=== PATIENT | female | born 1965 | race Caucasian/White ===

== ENCOUNTER 2017-08-16 04:05 | Inpatient (IN) | payer OTHER ==
[2017-08-16] MEDS ORDERED: NA CHLORIDE 0.9% 1,000 ML ONE (04:42)
[2017-08-16] MEDS ORDERED: SUCRALFATE 1GM/10ML UCUP ONE (04:48)
[2017-08-16 05:25] LABS: Bicarbonate 25 mEq/L (21-31); Glucose Level 210 mg/dL (65-120); Lipase 22 U/L (22-51); Sodium Level 135 mEq/L (135-145)
[2017-08-16 05:26] LABS: Absolute Lymphocytes (CBC) 1.5 K/uL (0.7-4.9); Absolute Monocytes 0.6 K/uL (0.1-1.3); Absolute Neutrophil 14.8 K/uL (1.8-8.0); Basophils % 0.3 % (0-1.3); Eosinophils % 0.1 % (0-4.4); Hematocrit 45.9 % (36.0-45.0); MCH 29.8 pg (27.0-35.0); MCV 89.3 fL (80-100); MPV 8.5 fL (7.6-11.3); Monocytes % 3.4 % (3.3-12.3); RBC Red Blood Cell Count 5.14 M/uL (3.86-4.86)
[2017-08-16 05:31] LABS: ALT/SGPT 28 IU/L (10-60); AST/SGOT 22 IU/L (10-42); Albumin 4.6 g/dL (3.2-5.5); Alkaline Phosphatase 71 IU/L (42-121); BUN Blood Urea Nitrogen 11 mg/dL (6-20); Bilirubin Direct 0.1 mg/dL (0-0.2); Bilirubin Total 0.6 mg/dL (0.3-1.2); Protein, Total 8.4 g/dL (6.0-8.3)
[2017-08-16 05:47] LABS: Urine Bacteria <20 /HPF (<20); Urine Culture Reflex Order NOT NEEDED; Urine RBC <5 /HPF (NONE SEEN)
[2017-08-16 05:51] LABS: Urine Blood TRACE (NEG); Urine Glucose 2+ (NEG); Urine Protein NEGATIVE (NEG)
[2017-08-16] MEDS ORDERED: MORPHINE 4 MG/ML SYR ONE ×2 (06:18→11:09)
--- NOTE | 2017-08-16 06:42 | EKG ---
Test Date: 2017-08-16 Test Time: 05:01:19 Reception Specialist: MEASUREMENT RESULTS: Intervals: Rate: 77 IA: 174 QRSD: 76 QT: 372 QTc: 420 [place]: P: 38 IA: 174 QRS: 0 T: 12 INTERPRETIVE STATEMENTS: Normal sinus rhythm Normal ECG No previous ECG available for comparison Electronically Signed On 08-16-17 06:41:41 CDT by Jimmy Pearce
[2017-08-16 06:45] LABS: Blood Morphology Comment NOT SEEN (NOT SEEN); Platelet Estimate ADEQ
--- NOTE | 2017-08-16 08:28 | RAD REPORT ---
EXAM DESCRIPTION: CT - Stone Protocol - 08/16/2017 6:43 am CLINICAL HISTORY: Abdominal pain. Epigastric pain for 1 week COMPARISON: None. TECHNIQUE: Computed axial tomography of the abdomen pelvis was obtained without oral or IV contrast. Lack of IV and oral contrast limits evaluation of solid organs, bowel, and vessels. Coronal reformat joel images were obtained and reviewed. A preliminary report was generated by [employer] and r eviewed prior to this dictation All CT scans are performed using dose optimization technique as appropriate and may include automated exposure control or mA/KV adjustment according to patient size. FINDINGS: A 3 centimeter gallstone is present. The gallbladder wall appears borderline thickened. Left renal calculi vary in size from 1-4 millimeters. Left hydronephrosis is not seen. A right renal calculus is not present. Right hydronephrosis is not noted. A ureteral calculus is not seen. A bladde r calculus is not present. An IUD is present within the uterus. A 26 millimeter right ovarian cyst is present without significant free-fluid. The liver, spleen, pancreas and adrenals appear grossly normal There is no evidence of diverticulitis. The appendix appears normal A small umbilical hernia contains fat IMPRESSION: Nonobstructing left renal calculi Cholelithiasis. Borderline gallbladder wall thickening may indicate cholecystitis and should be corre lated clinically
--- NOTE | 2017-08-16 08:30 | RAD REPORT ---
EXAM DESCRIPTION: US - Abdomen Exam Limited - 08/16/2017 6:54 am CLINICAL HISTORY: Abdominal pain. COMPARISON: August 16, 2017 cat scan FINDINGS: A large gallstone is present within the gallbladder neck. Small amount of sludge is presen t in the gallbladder. Gallbladder wall appears borderline thickened. Common bile duct measures 6.4 millimeters. IMPRESSION: Cholelithiasis. Borderline gallbladder wall thickening may indicate cholecystitis and sh ould be correlated clinically. The common bile duct is borderline enlarged
--- NOTE | 2017-08-16 08:48 | ER ---
Nurse's Notes [facility] Name: Lillie Zabala Age: 51 yrs Sex: Female : 1965 Arrival Date: 08/16/2017 Time: 04:07 Bed 8 Private MD: Bouchra Jenkins Diagnosis: Acute abdominal pain;Acute Cholecystitis;hyperglycemia;glucosuria Presentation: 08/16 04:23 Presenting complaint: Patient states: Mid abdominal pain that has been on and off x 1 lp1 week, worse this morning when she woke up with N/V; Hx of GERD, acid reflux. Transition of care: patient was not received from another setting of care. Onset of symptoms was August 16, 2017. Initial Sepsis Screen: Does the patient meet any 2 criteria? No. Patient's initial sepsis screen is negative. Does the patient have a suspected source of infection? No. Patient's initial sepsis screen is negative. Care prior to arrival: None. 04:23 Method Of Arrival: Ambulatory lp1 04:23 Acuity: GABE 3 lp1 SOFTWARE SALES: 04:23 LMP N/A - IUD ea Historical: - Allergies: 04:30 No Known Allergies; lp1 - Home Meds: 04:30 lisinopril 10 mg Oral tab 1 tab once daily [Active]; pantoprazole 40 mg oral TbEC 1 tab lp1 once daily [Active]; amlodipine 5 mg tab 1 tab once daily [Active]; - PMHx: 04:30 GERD; acid reflux; Hypertension; hiatal hernia; lp1 - PSHx: 04:30 ; lp1 - Immunization history:: Adult Immunizations up to date. - Social history:: Smoking status: Patient/guardian denies using tobacco. Screenin:38 Abuse screen: Denies threats or abuse. Denies injuries from another. Nutritional lp1 screening: No deficits noted. Tuberculosis screening: No symptoms or risk factors identified. Fall Risk None identified. Assessment: 05:09 General: Appears in no apparent distress. comfortable, Behavior is calm, cooperative. mg2 Pain: Complains of pain in abdomen Pain does not radiate. Pain at worst was 7 out of 10 on a pain scale. Quality of pain is described as aching, Pain began gradually, Is intermittent, Alleviated by medications, rest, relaxation. Neuro: Level of Consciousness is awake, alert, obeys commands, Oriented to person, place, time. Cardiovascular: Capillary refill < 3 seconds Patient's skin is warm and dry. Rhythm is regular. Respiratory: Airway is patent Respiratory effort is even, unlabored. GI: Abdomen is non-distended, Reports lower abdominal pain, diarrhea, nausea. : Urine is clear. EENT: No signs and/or symptoms were reported regarding the EENT system. Derm: Skin is pink, warm \T\ dry. normal. Musculoskeletal: No signs and/or symptoms reported regarding the musculoskeletal system. 06:15 Reassessment: Patient appears in no apparent distress at this time. Patient and/or mg2 family updated on plan of care and expected duration. Pain level reassessed. Patient is alert, oriented x 3, equal unlabored respirations, skin warm/dry/pink. 07:00 Reassessment: pt resting quietly laying supin in bed, HOB elevated 35 degrees, pt sg reports pain is better, a 2/10 on a pain scale. awaiting new orders at this time, awaiting results from CT scan, will continue to monitor. 08:00 Reassessment: Patient appears in no apparent distress at this time. Patient and/or sg family updated on plan of care and expected duration. Pain level reassessed. Patient is alert, oriented x 3, equal unlabored respirations, skin warm/dry/pink. Patient states feeling better. 09:00 Reassessment: Patient appears in no apparent distress at this time. Patient and/or sg family updated on plan of care and expected duration. Pain level reassessed. Patient is alert, oriented x 3, equal unlabored respirations, skin warm/dry/pink. new orders received, see EMAR Patient states feeling better. 10:00 Reassessment: Patient appears in no apparent distress at this time. Patient and/or sg family updated on plan of care and expected duration. Pain level reassessed. Patient is alert, oriented x 3, equal unlabored respirations, skin warm/dry/pink. awaiting a bed assignment at this time, Dr. Manriquez at bedside evaluating pt at this time, orders have been input for a bed upstairs, pt updated on admission status, will continue to monitor. Vital Signs: 04:15 BP 168 / 90; Pulse 88; Resp 18 S; Temp 98.1; Pulse Ox 98% on R/A; Weight 99.79 kg; ea Height 5 ft. 6 in. (167.64 cm); Pain 7/10; 06:15 BP 147 / 68; Pulse 79; Resp 18; Pulse Ox 98% on R/A; Pain 6/10; mg2 07:51 BP 122 / 61; Pulse 83; Resp 18; Pulse Ox 94% ; sv 08:00 Pain 7/10; sg 11:24 BP 142 / 67; Pulse 88; Resp 18 S; Pulse Ox 97% on R/A; Pain 7/10; sg 04:15 Body Mass Index 35.51 (99.79 kg, 167.64 cm) ea ED Course: 04:07 Patient arrived in ED. am2 04:09 Bouchra Jenkins FNP-C is Private Physician. am2 04:17 Darian Brown MD is Attending Physician. gs 04:23 Leah Matthew, RN is Primary Nurse. lp1 04:25 Triage completed. lp1 04:25 Arm band placed on left wrist. lp1 04:30 Patient has correct armband on for positive identification. Placed in gown. Pulse ox lp1 on. NIBP on. 04:41 Radiology exam delayed due to test not completed at this time. vr 05:14 No provider procedures requiring assistance completed. Inserted saline lock: 20 gauge mg2 in right antecubital area, using aseptic technique. 05:53 CT Stone Protocol In Process Unspecified. EDMS 06:52 Ultrasound completed. Patient tolerated well. aa4 06:53 US Abdomen Limited In Process Unspecified. EDMS 08:03 Primary Nurse role handed off by Leah Matthew, RN sg 08:03 Que Herbert, MYLENE is Primary Nurse. sg 08:40 Attending Physician role handed off by Darian Brown MD wa 08:40 Terrence Lomax MD is Attending Physician. wa 08:46 Sathish Manriquez MD is Hospitalizing Provider. wa 09:20 Surgeon called OR and left message that Dr. Walters had a surgical consult in the ED. eb 11:44 Patient admitted, IV remains in place. intact. sv Administered Medications: 05:07 Drug: NS 0.9% 1000 ml Route: IV; Rate: 1 bolus; Site: right antecubital; mg2 06:27 Follow up: Response: No adverse reaction mg2 07:00 Follow up: Response: No adverse reaction; IV Status: Completed infusion; IV Intake: sg 990ml 05:07 Drug: Zofran 4 mg Route: IVP; Site: right antecubital; mg2 06:26 Follow up: Response: No adverse reaction; Nausea is decreased mg2 05:08 Drug: CarafATE 1 grams Route: PO; mg2 06:00 Follow up: Response: No adverse reaction; Pain is decreased mg2 06:25 CANCELLED (Physician Discretion): fentaNYL (PF) 50 mcg IVP once mg2 06:25 Drug: morphine 4 mg Route: IVP; Site: right antecubital; mg2 07:25 Follow up: Response: No adverse reaction; Pain is decreased sg 09:00 Drug: LevaQUIN 500 mg Volume: 100 ml; Route: IVPB; Infused Over: 60 mins; Site: right sg antecubital; 10:05 Follow up: Response: No adverse reaction; IV Status: Completed infusion; IV Intake: sg 100ml 09:25 Drug: Flagyl 500 mg Volume: 100 ml; Route: IVPB; Rate: 200 ml/hr; Infused Over: 30 sg mins; Site: right antecubital; 10:05 Follow up: Response: No adverse reaction; IV Status: Completed infusion; IV Intake: sg 100ml 11:15 Drug: morphine 4 mg Route: IVP; Site: right antecubital; sg Intake: 07:00 IV: 990ml; Total: 990ml. sg 10:05 IV: 100ml; Total: 1090ml. sg 10:05 IV: 100ml; Total: 1190ml. sg Outcome: 08:47 Decision to Hospitalize by Provider. wa 11:45 Admitted to Med/surg accompanied by tech, via wheelchair, room 230, with chart, Report sv called to Angel CHAKRABORTY 11:45 Condition: stable 11:45 Instructed on the need for admit. 11:51 Patient left the ED. sg Signatures: Dispatcher [employer] EDMS Rosalina Falcon RN RN sv Gay, Steven, RN RN Rachel Nielsen Victoria vr Pena, Laura, RN RN lp1 Rachel Valdez am2 Santana, Abigail, RN RN ea Brown, Darian, MD MD gs Dami, Terrence, MD MD wa Siddiqi, Tori eb Gardose, Tay, RN RN mg2 Corrections: (The following items were deleted from the chart) 04:23 04:15 BP 168 / 90; Pulse 88bpm; Pulse Ox 98% RA; ea ea 06:29 06:15 BP 147 / 68; Pulse 79bpm; Resp 18bpm; Pulse Ox 98% RA; mg2 mg2
--- NOTE | 2017-08-16 08:48 | EDPHYS ---
Physician Documentation [facility] Name: Lillie Zabala Age: 51 yrs Sex: Female : 1965 Arrival Date: 08/16/2017 Time: 04:07 Bed 8 Private MD: Bouchra Jenkins ED Physician Terrence Lomax HPI: 08/16 06:16 This 51 yrs old Female presents to ER via Ambulatory with complaints of gs Abdominal Pain, Nausea/Vomiting. 06:22 The patient presents with abdominal pain in the epigastric area, in the upper abdomen. gs Onset: The symptoms/episode began/occurred 3 day(s) ago. The symptoms radiate to Associated signs and symptoms: Pertinent positives: nausea and vomiting. The symptoms are described as sharp. Modifying factors: The symptoms are alleviated by nothing, the symptoms are aggravated by food. Severity of pain: At its worst the pain was severe in the emergency department the pain has improved moderately. The patient has experienced similar episodes in the past, several times. The patient has not recently seen a physician. RADIO ELECTRICIAN: 04:23 LMP N/A - IUD ea Historical: - Allergies: 04:30 No Known Allergies; lp1 - Home Meds: 04:30 lisinopril 10 mg Oral tab 1 tab once daily [Active]; pantoprazole 40 mg oral TbEC 1 tab lp1 once daily [Active]; amlodipine 5 mg tab 1 tab once daily [Active]; - PMHx: 04:30 GERD; acid reflux; Hypertension; hiatal hernia; lp1 - PSHx: 04:30 ; lp1 - Immunization history:: Adult Immunizations up to date. - Social history:: Smoking status: Patient/guardian denies using tobacco. ROS: 06:22 All other systems are negative. gs 08:48 Constitutional: Negative for fever, chills, and weight loss, Eyes: Negative for injury, wa pain, redness, and discharge. Exam: 06:22 Head/Face: Normocephalic, atraumatic. Eyes: Pupils equal round and reactive to light, gs extra-ocular motions intact. Lids and lashes normal. Conjunctiva and sclera are non-icteric and not injected. Cornea within normal limits. Periorbital areas with no swelling, redness, or edema. ENT: Nares patent. No nasal discharge, no septal abnormalities noted. Tympanic membranes are normal and external auditory canals are clear. Oropharynx with no redness, swelling, or masses, exudates, or evidence of obstruction, uvula midline. Mucous membranes moist. Neck: Trachea midline, no thyromegaly or masses palpated, and no cervical lymphadenopathy. Supple, full range of motion without nuchal rigidity, or vertebral point tenderness. No Meningismus. Chest/axilla: Normal chest wall appearance and motion. Nontender with no deformity. No lesions are appreciated. Cardiovascular: Regular rate and rhythm with a normal S1 and S2. No gallops, murmurs, or rubs. Normal PMI, no JVD. No pulse deficits. Respiratory: Lungs have equal breath sounds bilaterally, clear to auscultation and percussion. No rales, rhonchi or wheezes noted. No increased work of breathing, no retractions or nasal flaring. Back: No spinal tenderness. No costovertebral tenderness. Full range of motion. Skin: Warm, dry with normal turgor. Normal color with no rashes, no lesions, and no evidence of cellulitis. MS/ Extremity: Pulses equal, no cyanosis. Neurovascular intact. Full, normal range of motion. Neuro: Awake and alert, GCS 15, oriented to person, place, time, and situation. Cranial nerves II-XII grossly intact. Motor strength 5/5 in all extremities. Sensory grossly intact. Cerebellar exam normal. Normal gait. 06:22 Constitutional: The patient appears alert, awake. 06:22 ECG was reviewed by the Attending Physician. 06:22 Abdomen/GI: Palpation: moderate abdominal tenderness, in the epigastric area and right upper quadrant. Vital Signs: 04:15 BP 168 / 90; Pulse 88; Resp 18 S; Temp 98.1; Pulse Ox 98% on R/A; Weight 99.79 kg; ea Height 5 ft. 6 in. (167.64 cm); Pain 7/10; 06:15 BP 147 / 68; Pulse 79; Resp 18; Pulse Ox 98% on R/A; Pain 6/10; mg2 07:51 BP 122 / 61; Pulse 83; Resp 18; Pulse Ox 94% ; sv 08:00 Pain 7/10; sg 11:24 BP 142 / 67; Pulse 88; Resp 18 S; Pulse Ox 97% on R/A; Pain 7/10; sg 04:15 Body Mass Index 35.51 (99.79 kg, 167.64 cm) ea MDM: 04:24 Patient medically screened. gs 06:22 Differential diagnosis: cholecystitis, Cholelithiasis, diverticulitis, gastroesophageal gs reflux disease, Peptic Ulcer Disease. Data reviewed: vital signs, nurses notes. Response to treatment: the patient's symptoms have markedly improved after treatment. 08:41 Physician consultation: Sathish Manriquez MD. Special discussion: received sign out from ks out-going MD Dr. Brown. pt with abd pain with assoc vomiting. post-prandial. noted with elevated WBC and gallstones with thickened wall. will admit for further treatment and surgical eval. incidental finding of hyperglycemia and glucosuria. now dx. pt has family history. I did advise admit MD Dr. Manriquez of this.. 08/16 04:39 Order name: Basic Metabolic Panel; Complete Time: 05:51 gs 08/16 04:39 Order name: CBC with Diff; Complete Time: 07:10 08/16 04:39 Order name: Hepatic Function; Complete Time: 05:51 gs 08/16 04:39 Order name: Lipase; Complete Time: 05:51 gs 08/16 04:39 Order name: Urine Microscopic Only; Complete Time: 05:51 gs 08/16 05:13 Order name: Urine Dipstick--Ancillary (enter results); Complete Time: 05:54 rg2 08/16 05:13 Order name: Urine --Ancillary (enter results); Complete Time: 05:54 rg2 08/16 06:27 Order name: Manual Differential; Complete Time: 07:09 EDMS 08/16 09:04 Order name: Hemoglobin A1C EDMS 08/16 09:04 Order name: CBC with Automated Diff EDMS 08/16 09:04 Order name: CBC with Automated Diff EDMS 08/16 09:04 Order name: CBC with Automated Diff EDMS 08/16 09:04 Order name: CBC with Automated Diff EDMS 08/16 09:04 Order name: Comprehensive Metabolic Panel EDMS 08/16 04:39 Order name: EKG; Complete Time: 04:39 gs 08/16 04:39 Order name: CT Stone Protocol; Complete Time: 08:34 gs 08/16 05:55 Order name: US Abdomen Limited; Complete Time: 08:33 gs 08/16 09:04 Order name: CONS Physician Consult EDIA 08/16 09:04 Order name: NPO EDIA 08/16 09:04 Order name: Comprehensive Metabolic Panel EDIA 08/16 09:04 Order name: Comprehensive Metabolic Panel EDIA 08/16 09:04 Order name: Comprehensive Metabolic Panel [facility] 08/16 04:39 Order name: IV Saline Lock; Complete Time: 05:08 08/16 04:39 Order name: Labs collected and sent; Complete Time: 05:08 gs 08/16 04:39 Order name: Urine Dipstick-Ancillary (obtain specimen); Complete Time: 04:55 gs 08/16 04:39 Order name: EKG - Nurse/Tech; Complete Time: 05:07 gs 08/16 04:39 Order name: Urine Test (obtain specimen); Complete Time: 04:55 gs EC:22 Rate is 77 beats/min. Rhythm is regular. LA interval is normal. QRS interval is normal. gs T waves are Flattened in leads V2, V3. No ST changes noted. Clinical impression: NSR w/ Non-specific ST/T Changes and Abnormal EKG without significant change. Interpreted by me. Administered Medications: 05:07 Drug: NS 0.9% 1000 ml Route: IV; Rate: 1 bolus; Site: right antecubital; mg2 06:27 Follow up: Response: No adverse reaction mg2 07:00 Follow up: Response: No adverse reaction; IV Status: Completed infusion; IV Intake: sg 990ml 05:07 Drug: Zofran 4 mg Route: IVP; Site: right antecubital; mg2 06:26 Follow up: Response: No adverse reaction; Nausea is decreased mg2 05:08 Drug: CarafATE 1 grams Route: PO; mg2 06:00 Follow up: Response: No adverse reaction; Pain is decreased mg2 06:25 CANCELLED (Physician Discretion): fentaNYL (PF) 50 mcg IVP once mg2 06:25 Drug: morphine 4 mg Route: IVP; Site: right antecubital; mg2 07:25 Follow up: Response: No adverse reaction; Pain is decreased sg 09:00 Drug: LevaQUIN 500 mg Volume: 100 ml; Route: IVPB; Infused Over: 60 mins; Site: right sg antecubital; 10:05 Follow up: Response: No adverse reaction; IV Status: Completed infusion; IV Intake: sg 100ml 09:25 Drug: Flagyl 500 mg Volume: 100 ml; Route: IVPB; Rate: 200 ml/hr; Infused Over: 30 sg mins; Site: right antecubital; 10:05 Follow up: Response: No adverse reaction; IV Status: Completed infusion; IV Intake: sg 100ml 11:15 Drug: morphine 4 mg Route: IVP; Site: right antecubital; sg Disposition: 08/16/17 08:47 Hospitalization ordered by Sathish Manriquez for Inpatient Admission. Preliminary diagnosis are Acute abdominal pain, Acute Cholecystitis, hyperglycemia, glucosuria. - Bed requested for Telemetry/MedSurg (observation). - Status is Inpatient Admission. sg - Condition is Stable. - Problem is new. - Symptoms have improved. UTI on Admission? No Signatures: Dispatcher [employer] EDMS Que Herbert RN RN sg Leah Matthew RN RN lp1 Yuliya Chauhan RN RN Darian Brown MD MD Terrence Lomax MD MD wa Botello, Elizabeth eb Gardose, Michele, RN RN mg2 Corrections: (The following items were deleted from the chart) 06:25 05:55 fentaNYL (PF) 50 mcg IVP once ordered. mg2 08:52 08:47 Hospitalization Ordered by Sathish Manriquez MD for Inpatient Admission. Preliminary eb diagnosis is Acute abdominal pain; Acute Cholecystitis; hyperglycemia; glucosuria. Bed requested for Telemetry/MedSurg (observation). Status is Inpatient Admission. Condition is Stable. Problem is new. Symptoms have improved. UTI on Admission? No. ks 09:33 08:52 08/16/2017 08:47 Hospitalization Ordered by Sathish Manriquez MD for Inpatient eb Admission. Preliminary diagnosis is Acute abdominal pain; Acute Cholecystitis; hyperglycemia; glucosuria. Bed requested for Telemetry/MedSurg (observation). Status is Inpatient Admission. Condition is Stable. Problem is new. Symptoms have improved. UTI on Admission? No. eb 11:29 09:33 08/16/2017 08:47 Hospitalization Ordered by Sathish Manriquez MD for Inpatient df Admission. Preliminary diagnosis is Acute abdominal pain; Acute Cholecystitis; hyperglycemia; glucosuria. Bed requested for Telemetry/MedSurg (observation). Status is Inpatient Admission. Condition is Stable. Problem is new. Symptoms have improved. UTI on Admission? No. eb 11:51 11:29 08/16/2017 08:47 Hospitalization Ordered by Sathish Manriquez MD for Inpatient sg Admission. Preliminary diagnosis is Acute abdominal pain; Acute Cholecystitis; hyperglycemia; glucosuria. Bed requested for Telemetry/MedSurg (observation). Status is Inpatient Admission. Condition is Stable. Problem is new. Symptoms have improved. UTI on Admission? No. df
[2017-08-16] MEDS ORDERED: METRONIDAZOLE 500mg IVPB 500 MG/100 ML BAG IV ONE (08:50)
[2017-08-16] MEDS ORDERED: Levofloxacin500mg IV 500 MG/100 ML BAG IV ONE (08:51)
[2017-08-16] MEDS ORDERED: ACETAMINOPHEN 650MG/RECT SUPP PR PRN (09:00)
[2017-08-16] MEDS ORDERED: ONDANSETRON 4 MG/2 ML VIAL IV PRN (09:00)
[2017-08-16] MEDS: INSULIN -REGULAR HUMAN 50 UNIT/0.5 ML ML SQ SCH ×3 (11:30→21:00)
--- NOTE | 2017-08-16 12:41 | RAD REPORT ---
EXAM DESCRIPTION: MRIAbdomen (Gallbladder) CLINICAL HISTORY: Abdominal pain COMPARISON: CT/ultrasound 08/16/2017 FINDINGS: A large gallstone is noted in the gallbladder. The gallbladder wall is slightly thickened, however, no significant pericholecystic fluid is suspected. No intrahepatic biliary dilatation seen. The common bile duct is normal caliber. No common bile duct stone is seen. Pancreatic duct is normal . Limited T2 sequences through the abdomen show no aggressive or worrisome solid organ abnormality. No bulky adenopathy or free fluid in the abdomen. IMPRESSION: Cholelithiasis. No convincing evidence of acute cholecystitis seen. No common duct stone or significant biliary dilatation suspected.
[2017-08-16] MEDS ORDERED: SODIUM CHLORIDE 0.9% 10ML INJ IV PRN (13:03)
[2017-08-16] MEDS: D5 0.45 NS 1,000 ML IV SCH ×3 (13:13→20:18)
[2017-08-16] MEDS ORDERED: PROMETHAZINE 25 MG/ML VIAL IV ONE (14:56)
[2017-08-16] MEDS ORDERED: PNEUMOCOCCAL VACCINE 0.5 ML IMVAC ONE (15:00)
--- NOTE | 2017-08-16 18:05 | CON ---
Date of Consultation: 08/16/2017 Diagnoses: Epigastric right upper quadrant pain, acute cholecystitis, and symptomatic cholelithiasis . History Of Present Illness: This is the case of a 51-year-old patient, comes to us with epigastric r ight upper quadrant pain radiating to the back, associated with nausea and vomiting for about a week of duration. She has been trying to see if she can hold this and today she just could not keep it an ymore and she gets nauseous and she decided to come to the ER and diagnosed as above. She denies any dysuria, hematuria, hematochezia, or melena. Denies any recent traveling out of the country. Denie s any family member sick at home. Past Medical History: Includes hypertension, hiatal hernia, acid reflux, and GERD. Medications: Lisinopril. Allergies: NONE. Social History: She does not smoke. She does not drink alcohol. Family History: Unremarkable. Review of Systems: Constitutional: Denies any fever. Respiratory: Denies any shortness of breath. Gastrointestinal: As above.. Genitourinary: Denies any dysuria, hematuria. Physical Examination: General: The patient is awake and alert. HEENT: Pupils are equal and reactive, anicteric. Neck: Supple. Chest: Clear. Heart: S1, S2. Abdomen: Epigastric right upper quadrant tenderness with Law sign positive. Breasts: Deferred. Rectal: Deferred. Pelvic: Deferred. Extremities: Good capillary refill. Laboratory Data: Blood work shows a WBC count of 17 with hemoglobin of 15 and platelets of 345 with potassium 4.0, total bilirubin of 0.6, and lipase 22. UA, urine negative. The patient had an MRI of the abdomen and it shows cholelithiasis. The abdominal ultrasound shows cholelithiasis, b orderline gallbladder wall thickening, cholecystitis. Abdominal ultrasound, as above. CAT scan of t he abdomen and pelvis shows gallstones, kidney stone on the left side with no hydronephrosis. Umbili meghna hernia. Assessment: Acute cholecystitis , symptomatic cholelithiasis with umbilical hernia. The patient is still having this issue for a week, not improving, so we offered her laparoscopic, possible open chol ecystectomy with benefits, alternatives, and risks including, but not limited to infection, bleeding, damage to adjacent structures, anesthesia complication, choledocholithiasis, bile leak, pancreatitis , AR, and even . She also understands this may not relieve any symptoms. She might need more t john one surgical intervention. She understood and she will sign a consent. JESUS Voice ID: [id number] Report ID: [id number]
[2017-08-16] MEDS: METRONIDAZOLE 500mg IVPB 500 MG/100 ML BAG IV SCH (18:42)
[2017-08-16] MEDS: CIPROFLOXACIN 400mg IV 400 MG/200 ML BAG IV SCH (20:17)
--- NOTE | 2017-08-17 00:01 | HP ---
Date of Admission: 08/16/2017 Primary Care Physician: Dr. Marla Esquivel. Consultants: Dr. aWlters with General Surgery. History Of Present Illness: The patient is a 51-year-old female with past medical history of hyperte nsion, hiatal hernia, gastroesophageal reflux disease, who was in her usual state of health until sev eral weeks prior to admission when the patient has been having right upper quadrant and epigastric pa in associated with nausea and vomiting, worse with fried, fatty foods. The patient has had episodes of vomiting recently, which has been progressively worsening. Her pain has become worse, constant, d ull in nature, radiating to her back in between the shoulder blades. The patient comes in for [facility] r evaluation. In the ER, her workup revealed elevated white count of 17,000 and imaging study showed acute cholecystitis. The patient was then referred for admission. When seen in the ER, the patient was awake, alert, oriented x3, in some acute distress. Past Medical History: Hypertension, hiatal hernia, gastroesophageal reflux disease. Past Surgical History: x3. Allergies: NO KNOWN DRUG ALLERGIES. Medications: Reviewed. Social History: The patient is , has 3 children. Does not smoke. Does drink occasionally in social events. No illicit drug use. Family History: Brother and mother both have diabetes. Mother also has coronary artery disease. Review of Systems: An 11-point system reviewed, negative except as above. Physical Examination: Vital Signs: Temperature 98.1, heart rate 88, blood pressure 168/90, respirations 18, O2 98% on room air. General: Awake, alert, oriented x3, in some mild distress. Obese female. BMI of 35.5. HEENT: Normocephalic, atraumatic. PERRLA. EOMI. Dry mucous membranes. Oropharynx is clear. Norm al dentition. Conjunctiva is anicteric. Neck: Supple. No JVD. Trachea midline. CV: S1, S2. Regular rate and rhythm. Peripheral pulses present bilaterally. Respiratory: Moving air well bilaterally. No wheezing. Gastrointestinal: Abdomen is soft. Tenderness to palpation in the epigastric and right upper quadra nt region. No rebound or guarding. No palpable masses. Extremities: No clubbing, cyanosis, or edema. No calf tenderness. Neuro: Cranial nerves 2-12 intact grossly, 5/5 strength bilateral lower extremities. Sensation inta ct to light touch. Speech is normal. Skin: No rashes. Normal skin turgor. Psych: Mood is okay. Affect is full. Insight and judgment are good. Laboratory Data: Sodium 135, potassium 4, chloride 103, CO2 25, BUN 11, creatinine 0.67, glucose 210 , calcium 9.7, total bilirubin 0.6, AST 22, ALT 28, alkaline phosphatase 71, albumin 4.6, lipase 22. WBC 17, H and H 15.3 and 45.9, platelets 345, neutrophils 87%. Urine test is negative. U A shows negative nitrite, negative leukocyte, does have 2+ glucose, negative protein, no bacteria. Imaging Studies: CT scan of the abdomen shows IUD within the uterus 3 cm with gallstone, gallbladder wall borderline thickened, nonobstructing left renal calculi, 26 mm right ovarian cyst present witho ut significant free fluid. Borderline gallbladder wall thickening may indicate cholecystitis. MRCP shows cholelithiasis. No convincing evidence of acute cholecystitis seen. No common duct stone or s ignificant biliary dilatation suspected. Abdominal ultrasound shows cholelithiasis, borderline gallb ladder wall thickening may indicate cholecystitis. Common bile duct is borderline enlarged at 6.4 cm . EKG shows rate of 77, normal sinus rhythm, no acute T-wave or ST changes. Assessment: A 51-year-old female with: 1.Right upper quadrant abdominal pain secondary to acute cholecystitis. 2.Acute cholecystitis without choledocholithiasis. MRCP is negative for any ductal stone. Abdomina l ultrasound had shown some enlarged CBD at 6.4 cm. 3.Hyperglycemia. We will check hemoglobin A1c. The patient has strong family history of diabetes, has metabolic syndrome. 4.Obesity, BMI of 35. 5.Essential hypertension. We will add as needed medications. 6.Gastroesophageal reflux disease. Continue IV PPI. 7.Gastrointestinal and deep venous thrombosis prophylaxis, PPI and SCDs. Plan: Keep n.p.o., IV fluids, IV pain medications. Obtain surgical consultation. ROSEMARIE Voice ID: [id number]
[2017-08-17] MEDS: METRONIDAZOLE 500mg IVPB 500 MG/100 ML BAG IV SCH ×2 (00:41→08:45)
[2017-08-17 05:43] LABS: Absolute Lymphocytes (CBC) 2.8 K/uL (0.7-4.9); Absolute Monocytes 0.8 K/uL (0.1-1.3); Basophils % 0.4 % (0-1.3); Eosinophils % 0.9 % (0-4.4); Hematocrit 41.6 % (36.0-45.0); Lymphocytes % 28.8 % (15.3-44.8); MCH 29.7 pg (27.0-35.0); MCV 90.7 fL (80-100); MPV 8.2 fL (7.6-11.3); Monocytes % 8.2 % (3.3-12.3); RBC Red Blood Cell Count 4.59 M/uL (3.86-4.86)
[2017-08-17] MEDS: INSULIN -REGULAR HUMAN 50 UNIT/0.5 ML ML SQ SCH ×4 (06:00→16:33)
[2017-08-17 06:19] LABS: ALT/SGPT 20 IU/L (10-60); AST/SGOT 19 IU/L (10-42); Albumin 3.5 g/dL (3.2-5.5); Alkaline Phosphatase 60 IU/L (42-121); BUN Blood Urea Nitrogen 6 mg/dL (6-20); Bicarbonate 25 mEq/L (21-31); Bilirubin Total 0.6 mg/dL (0.3-1.2); Glucose Level 138 mg/dL (65-120); Magnesium 1.9 mg/dL (1.8-2.5); Potassium 3.8 mEq/L (3.6-5.0); Protein, Total 6.3 g/dL (6.0-8.3); Sodium Level 137 mEq/L (135-145)
[2017-08-17] MEDS ORDERED: KCL 20 MEQ/100 mL IVPB 20 MEQ/100 ML BAG IV SCH (07:00)
[2017-08-17] MEDS ORDERED: PANTOPRAZOLE 40 MG INJ IVP SCH (09:00)
[2017-08-17 09:58] LABS: A1c Component 0.57 mg/dL; Hemoglobin A1c 5.9 % (4-6.0)
[2017-08-17] MEDS ORDERED: PROPOFOL 200 MG/20 ML VIAL IV ONE (10:00)
[2017-08-17] MEDS ORDERED: GLYCOPYRROLATE 0.2 MG/ML SYR ONE ×2 (10:01)
[2017-08-17] MEDS ORDERED: FENTANYL CITR 100 MCG/2 ML ONE (10:01)
[2017-08-17] MEDS ORDERED: ONDANSETRON 4 MG/2 ML VIAL ONE (10:01)
[2017-08-17] MEDS ORDERED: MIDAZOLAM HCL 2 MG/2 ML INJ ONE (10:01)
[2017-08-17] MEDS ORDERED: LIDOCAINE 1% MPF 5 ML VIAL ONE (10:02)
[2017-08-17] MEDS ORDERED: KETOROLAC 30 MG/ML INJ ONE (10:02)
[2017-08-17] MEDS ORDERED: ROCURONIUM 50 MG/5 ML VIAL IV ONE (10:02)
[2017-08-17] MEDS ORDERED: MORPHINE 10 MG/ML VIAL ONE (10:02)
[2017-08-17] MEDS ORDERED: NEOSTIGMINE 1 MG/ML -5 ML SYRINGE ONE (10:03)
[2017-08-17] MEDS ORDERED: NA CHLORIDE 0.9% 1,000 ML ONE (11:20)
[2017-08-17] MEDS ORDERED: MEPERIDINE HCL 25 MG/0.5 ML ONE (12:36)
--- NOTE | 2017-08-17 12:39 | P.BOP ---
Preoperative diagnosis: Acute cholecystitis, symptomatic cholelithiasis Postoperative diagnosis: same Primary procedure: Laparoscopic cholecystectomy Estimated blood loss: <10cc Specimen: gb Findings: as above Anesthesia: General Complications: None Transferred to: Recovery Room Condition: Good
[2017-08-17] MEDS: CIPROFLOXACIN 400mg IV 400 MG/200 ML BAG IV SCH (16:45)
--- NOTE | 2017-08-18 00:30 | DS ---
Date of Discharge: 08/17/2017 Consultants: Dr. Walters, General Surgery. Procedures: On 08/17/2017, laparoscopic cholecystectomy and umbilical hernia repair. Admitting Diagnoses: 1.Right upper quadrant abdominal pain. 2.Cholelithiasis without acute cholecystitis or choledocholithiasis. 3.Obesity, BMI 35.5. 4.Gastroesophageal reflux disease without esophagitis. 5.Essential hypertension. 6.Hyperglycemia. Discharge Diagnoses: 1.Right upper quadrant abdominal pain secondary to cholelithiasis, status post cholecystectomy. 2.Prediabetes. Hemoglobin A1c 5.9%. Diet and exercise modification. Recheck hemoglobin A1c in 3 m [facility]. 3.Obesity, BMI 35. 4.Essential hypertension, stable. 5.Gastroesophageal reflux disease without esophagitis. Continue PPI. Hospital Course: The patient is a 51-year-old female who comes in with abdominal pain. She was foun d to have acute cholelithiasis and acute cholecystitis. The patient had white count of 17,000. She was started on IV antibiotics, kept n.p.o. She was seen by Dr. Walters who took her for laparoscopi c cholecystectomy and umbilical hernia repair. She did have an MRCP which ruled out choledocholithia sis. Her ultrasound initially had shown borderline enlargement of the common bile duct, however, no stone was found. The patient was counseled on her obesity and hyperglycemia. She is prediabetic wit h hemoglobin A1c of 5.9%. She needs to have diet modification and exercise modification. Recheck he r hemoglobin A1c in 3 months and if continues to be elevated, she needs to be started on metformin by her PCP, Bouchra Esquivel. The patient was also counseled on diet modifications following gallbladder rem oval including fat-soluble vitamin supplementation. The patient did well postoperatively. Her white count normalized. She was afebrile. She was tolerating her diet. Pain was controlled. The patien t was then cleared for discharge from surgical standpoint, sent home in stable condition. Activity: As tolerated. Medications: As per medication reconciliation list. Time Spent: Total time spent discharging the patient was 36 minutes. No lifting more than 10 pounds . No driving or operating heavy machinery while on narcotics. Diet: Low fat, no fried food supplemented with vitamins D, E, A, and K. Discharge Instructions: Per Dr. Walters. Followup: Follow up with primary care physician in 2-3 days. Follow up with Dr. Walters in 1 week for wound check. Medications: As per medication reconciliation list. Physical Examination: General: Awake, alert, oriented, no acute distress. CV: S1, S2. No murmurs. Respiratory: Moving air well bilaterally. Abdomen: Soft, nontender, nondistended. Positive bowel sounds. Incision sites are clean, dry, inta ct. Extremities: No clubbing, cyanosis, edema. Neurologic: Nonfocal. SA/MODL Voice ID: [id number] Report ID: [id number]
--- NOTE | 2017-08-18 18:10 | OP ---
Date of Procedure: 08/17/2017 Surgeon: Willem Walters MD Preoperative Diagnoses: Acute cholecystitis, symptomatic cholelithiasis. Postoperative Diagnoses: Acute cholecystitis, symptomatic cholelithiasis. Procedure Performed: Laparoscopic cholecystectomy. Specimen: Gallbladder. Anesthesia: General plus local. Indications: This is a case of a female, who comes to us with above diagnosis. Fully explained the benefits, alternatives, and risks of laparoscopic, possible open cholecystectomy which include, but n ot limited to infection, bleeding, damage to adjacent structures, anesthesia complication, choledocho lithiasis, bile leak, pancreatitis, PA, even . She also understands this may not relieve any sy mptoms. She might need more than one surgical intervention. She understood. Signed a consent. Description Of Procedure: The patient was brought to the operating room and placed in the supine pos ition. Anesthesia was done without complication. Abdominal area was prepped and draped in a sterile fashion. Marcaine 0.5% was injected for local anesthetic, followed by sharp incision of the skin in the infraumbilical region. Incision was carried down to fascia, which was opened under direct visio n. Peritoneum was encountered, opened under direct vision. Vicryl #1 placed inside the fascia. Has son trocar was carefully introduced. No bleeding was obtained. After that, I placed 3 more trocars, 5 mm each one of them, in the right upper quadrant under direct visualization. We put a grasper in the fundus of the gallbladder, another grasper in the infundibulum, retracted the gallbladder in the inferolateral fashion exposing the triangle of Calot and obtaining critical view of safety. The cyst ic duct and cystic artery were clearly isolated free circumferentially and a connection between those and the gallbladder was clearly identified. I proceeded to ligate those by using at least 3 clips p roximal, 1 clip distally, ligation in the middle. Same was done with the cystic artery. No bile parveen k. No bleeding. The gallbladder was removed from liver using Bovie cauterizer and removed from abdo mell cavity using an EndoCatch through the umbilical incision. The area was inspected once again. Clips were intact. No bile leak. No bleeding. Gallbladder fossa was intact. At that moment, I pro ceeded to remove the trocars under direct vision. Deflated pneumoperitoneum. Closed the fascia with #1 Vicryl, irrigated subcu tissue, closed that with 3-0 chromic, and skin with shane. Sponge coun t and instrument counts were correct. The patient tolerated the procedure well. The patient was sen t to Recovery in stable condition. The patient has plan to go home today. If she tolerates full din ner then she will be able to go home today. She was advised to keep the area dry for 48 hours, then may shower. Continue with antibiotics as described. No heavy lifting. Followup: Follow up in my office in 1 week. JESUS Voice ID: [id number] Report ID: [id number]
== END 2017-08-17 19:35 | disposition home or self-care (01) | DRG 419 ==
LOC: ER 04:05 → ERHOLD 09:07 → 2ND 11:49
PROVIDERS: ADMIT Family Medicine; ATTEND Family Medicine
PROC: 0FT44ZZ Resection of Gallbladder, Percutaneous Endoscopic Approach (ICD-10-PCS; principal; 2017-08-17 11:00)
DX: K80.00 Calculus of gallbladder with acute cholecystitis without obstruction (principal); E66.9 Obesity, unspecified; Z68.35 Body mass index [BMI] 35.0-35.9, adult; K21.9 Gastro-esophageal reflux disease without esophagitis; R73.03 Prediabetes; I10 Essential (primary) hypertension; K42.9 Umbilical hernia without obstruction or gangrene
CPT/HCPCS: 36415; 74176; 74181; 76377; 76705; 80048; 80053; 80076; 81003; 81015; 81025; 82962; 83036; 83690; 83735; 85025; 88304; 93005; 94760; 96361; 96365; 96375; 99285; C9113; J0744; J2175; J2250; J2405; J2550; J2710; J3010; J7030

== ENCOUNTER 2020-08-07 15:09 | Inpatient (IN) | payer OTHER ==
--- OUTSIDE RECORDS SUMMARY | 2020-08-07 15:11 | XMS REPORT | Continuity of Care Document ---
:1965 Author Organization [facility] t Address [address] [place] [address] Care Team Providers Name Role Phone Adelso King DO Attending Clinician Problems This patient has no known problems. Allergies, Adverse Reactions, Alerts This patient has no known allergies or adverse reactions. Medications Ordered Filled Start Stop Current Ordering Indication Dosage Frequency Signature Comments Components Source Medication Medication Date Date Medication? Clinician (SIG) Name Name MetFORMIN MetFORMIN Yes Bouchra [address] [facility] HCl ER HCl ER [place] with [facility] Lisinopril Lisinopril Yes Bouchra [address] [facility] [place] [facility] Etodolac Etodolac Yes Bouchra [address] [place] with food [facility] Omeprazole Omeprazole Yes Bouchra [address] [facility] [place] 30 minutes [facility] before [facility] morning l meal [facility] Tums E-X Tums E-X Yes Bouchra not [facility] [place] defined [facility] Norvasc Norvas Yes Bouchra take [address] [facility] [place] tablet [facility] daily [facility] Singulair Singulair Yes Bouchra [address] [facility] [place] [facility] Crestor Crestor Yes Bouchra [address] [facility] [place] [facility] Pantoprazol Pantoprazol Yes Bouchra take [address] [facility] e Sodium e Sodium [place] tablet [facility] Outpati empty ent stomach Clinics once a day orally 90 Procedures This patient has no known procedures. Encounters Start End Encounter Admission Attending Care Care Encounter Source Date/Time Date/Time Type Type Clinicians Facility Department ID 2020-07-28 2020-07-28 Outpatient [facility] [id number] [facility] 2020-06-27 2020-06-27 Out[facility] [id number] [facility] 2020-06-15 2020-06-15 Out[facility] [id number] [facility] 2020-02-23 2020-02-23 Outpatient [facility] [id number] [facility] 2020-02-11 2020-02-11 Outpatient [facility] [id number] [facility] 2020-02-10 2020-02-10 [facility] [id number] [facility] 2020-01-29 2020-01-29 Out[facility] [id number] [facility] 2019-08-10 2019-08-10 [facility] [id number] [facility] 08:[facility] 08[facility]00 [place] 2019-07-01 2019-07-01 [facility] [id number] [facility] 13:33:00 13:33:00 [place] 2019-01-05 2019-01-05 [facility] [id number] [facility] 15:41:00 15:41:[place] [address] - [address] [facility] Medicine Outpati ent Clinics 2018-12-24 2018-12-24 [facility] [id number] 08[facility]00[facility]00 08:00:00 t [facility] Medicine Outpati ent Clinics 2018-10-22 2018-11-18 Office jorje [facility] [id number] 10:49:12 16:26:58 Visit [facility] [id number] [facility] [id number] [place] [id number] [facility] Office Building 2018-10-13 2018-10-13 Outpatient Alexandra Morrist [id number] [facility] 12:27:00 12:27:00 t [facility] Medicine Outpati ent Clinics 2018-06-24 2018-06-24 [facility] [id number] 11:00:00 11:00:00 [facility] Medicine Outpati ent Clinics 2017-12-26 2017-12-26 [facility] [id number] 10:30:00 10:30:00 t [facility] Medicine Outpati ent Clinics Results This patient has no known results.
[2020-08-07 23:14] LABS: Absolute Lymphocytes (CBC) 3.1 K/uL (0.7-4.9); Basophils % 0.9 % (0-1.3); Hematocrit 44.9 % (36.0-45.0); Lymphocytes % 33.1 % (15.3-44.8); MPV 8.8 fL (7.6-11.3); RBC Red Blood Cell Count 5.06 M/uL (3.86-4.86)
[2020-08-07 23:15] LABS: Protime INR 1.03
[2020-08-07] MEDS ORDERED: LIDOCAINE VISCOUS 2% SOLN 15 ML UDC ONE (23:38)
[2020-08-07] MEDS ORDERED: MAGNES/ALUMIN/SIMET 30ML UCUP ONE (23:38)
[2020-08-07 23:42] LABS: ALT/SGPT 59 U/L (12-78); AST/SGOT 143 U/L (15-37); Albumin 3.9 g/dL (3.4-5.0); Alkaline Phosphatase 92 U/L (45-117); BUN Blood Urea Nitrogen 10 mg/dL (7-18); Bicarbonate 23 mmol/L (21-32); Bilirubin Direct < 0.1 mg/dL (0-0.2); Bilirubin Total 0.3 mg/dL (0.2-1.0); Glucose Level 128 mg/dL (74-106); Lipase 121 U/L (73-393); Magnesium 2.2 mg/dL (1.8-2.4); NT PRO-BNP 456 pg/mL (<125); Potassium 4.2 mmol/L (3.5-5.1); Protein, Total 8.1 g/dL (6.4-8.2); Sodium Level 138 mmol/L (136-145)
[2020-08-07] MEDS ORDERED: FAMOTIDINE 20 MG/2 ML VIAL IV ONE (23:42)
[2020-08-08] MEDS ORDERED: ASPIRIN 81 MG CHEWABLE TABLET ONE (00:06)
--- NOTE | 2020-08-08 00:18 | ER ---
Nurse's Notes [facility] Name: Lillie Zabala Age: 54 yrs Sex: Female : 1965 Arrival Date: 08/07/2020 Time: 15:10 Bed 24 Private MD: Diagnosis: Non-ST elevation (NSTEMI) myocardial infarction Presentation: 08/07 15:38 Chief complaint: Patient states: Severe pain through mid chest that radiates into back ll1 since 07/14/20. Had EGD and colonscopy 07/28. Showed gastritis and removed a polyp. BP has been elevated at time since the end of June, has log of readings. Coronavirus screen: Client denies travel out of the [place] in the last 14 days. cough unrelated to allergies, fatigue, loss of taste or smell, Client presents with at least one sign or symptom that may indicate coronavirus-19. Standard/surgical mask placed on the client. Ebola Screen: Patient denies travel to an Ebola-affected area in the 21 days before illness onset. Initial Sepsis Screen: Does the patient meet any 2 criteria? HR > 90 bpm. No. Patient's initial sepsis screen is negative. Does the patient have a suspected source of infection? No. Patient's initial sepsis screen is negative. Risk Assessment: Do you want to hurt yourself or someone else? Patient reports no desire to harm self or others. Onset of symptoms was July 14, 2020. 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 - Social history:: Smoking status: Patient denies any tobacco usage or history of. Screenin:04 Abuse screen: Denies threats or abuse. Denies injuries from another. Nutritional mg2 screening: No deficits noted. Tuberculosis screening: No symptoms or risk factors identified. Fall Risk IV access (20 points). Assessment: 23:03 General: Appears in no apparent distress. comfortable, Behavior is calm, cooperative. mg2 Pain: Complains of pain in chest Pain radiates to back. Neuro: Level of Consciousness is awake, alert, obeys commands, Oriented to person, place, time, situation. Cardiovascular: Capillary refill < 3 seconds Patient's skin is warm and dry. Respiratory: Airway is patent Respiratory effort is even, unlabored, Respiratory pattern is regular, symmetrical. GI: No signs and/or symptoms were reported involving the gastrointestinal system. : No signs and/or symptoms were reported regarding the genitourinary system. EENT: No signs and/or symptoms were reported regarding the EENT system. Derm: Skin is intact, is healthy with good turgor, Skin is pink, warm \T\ dry. normal. Musculoskeletal: Circulation, motion, and sensation intact. Capillary refill < 3 seconds. 23:45 Reassessment: Patient appears in no apparent distress at this time. Patient and/or mg2 family updated on plan of care and expected duration. Pain level reassessed. Patient is alert, oriented x 3, equal unlabored respirations, skin warm/dry/pink. 08/08 02:02 Reassessment: Hospitalist at bedside explaining POC need for admit. Vital Signs: 08/07 15:38 BP 181 / 94; Pulse 102; Resp 18; Temp 97.4; Pulse Ox 98% on R/A; Weight 90.72 kg; ll1 Height 5 ft. 6 in. (167.64 cm); Pain 6/10; 22:45 BP 181 / 98; Pulse 90; Resp 18; Pulse Ox 98% on R/A; mg2 23:45 BP 138 / 64; Pulse 75; Resp 18; Pulse Ox 98% on R/A; mg2 08/08 02:00 BP 142 / 65; Pulse 71; Resp 18; Pulse Ox 98% on R/A; wh 08/07 15:38 Body Mass Index 32.28 (90.72 kg, 167.64 cm) ll1 ED Course: 08/07 15:10 Patient arrived in ED. mr 15:35 Arm band placed on. ll1 15:43 Triage completed. ll1 22:36 Tay Singh RN is Primary Nurse. mg2 22:55 Arsen Wilkerson MD is Attending Physician. 7 23:04 Patient has correct armband on for positive identification. athletic monitor on. Pulse mg2 ox on. NIBP on. Door closed. Warm blanket given. 23:04 No provider procedures requiring assistance completed. Inserted saline lock: 20 gauge mg2 in left antecubital area, using aseptic technique. Blood collected. 08/08 00:17 Pantera Sharma DO is Hospitalizing Provider. [facility] 01:13 Patient admitted, IV remains in place. mg2 Administered Medications: 08/07 23:22 Drug: GI Cocktail without - (Maalox Suspension 30 ml, Lidocaine Liquid 2 % 15 mg2 ml) Route: PO; 08/08 02:04 Follow up: Response: No adverse reaction 08/07 23:23 Drug: Pepcid (famotidine) 20 mg Route: IVP; Site: left antecubital; mg2 08/08 02:04 Follow up: Response: No adverse reaction 00:01 Drug: Aspirin Chewable Tablet 324 mg Route: PO; mg2 02:04 Follow up: Response: No adverse reaction 00:19 Drug: Lovenox (enoxaparin) 1 mg/kg Route: Sub-Q; Site: right lower abdomen; 02:04 Follow up: Response: No adverse reaction Outcome: 00:18 Decision to Hospitalize by Provider. [facility] 01:13 Admitted to ER Hold. Please see [facility] for further documentation. mg2 01:13 Condition: stable 01:13 Instructed on the need for admit, Demonstrated understanding of instructions. 13:44 Patient left the ED. aa5 Signatures: Raven Alarcon mr ElizondoBrittany RN RN aa5 Eze Correa RN RN Tay Singh RN RN [facility] Elvin Black RN RN 1 Arsen Wilkerson MD MD [facility] Corrections: (The following items were deleted from the chart) 08/07 15:44 15:38 Acuity: GABE 3 ll1 ll1
--- NOTE | 2020-08-08 00:19 | EDPHYS ---
Physician Documentation [facility] Name: Lillie Zabala Age: 54 yrs Sex: Female : 1965 Arrival Date: 08/07/2020 Time: 15:10 Bed 24 Private MD: ED Physician Arsen Wilkerson HPI: 08/07 23:19 This 54 yrs old Female presents to ER via Ambulatory with complaints of High mh7 Blood Pressure. 23:20 The patient or guardian reports chest pain that is located primarily in the epigastric mh7 area. Onset: 2 month(s) ago. 23:21 The pain radiates to back. Associated signs and symptoms: Pertinent negatives: cough, mh7 diaphoresis, dizziness, headache, lower extremity pain, lower extremity swelling, lightheadedness, nausea, near syncope, palpitations, recent travel, shortness of breath, syncope, vomiting. The chest pain is described as burning. Duration: The patient or guardian reports multiple episodes, that are intermittent, that wax and wane. Modifying factors: The symptoms are alleviated by antacids, the symptoms are aggravated by eating. Severity of pain: At its worst the pain was moderate 10 day(s) ago, in the emergency department the pain has improved moderately. States that she saw GI doctor for this issue and had EGD and colonoscopy and was told she had acid reflux. She is concerned that her blood pressure goes up when she has an episode. Denies any nausea, vomiting, fever, SOB.. 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 - Social history:: Smoking status: Patient denies any tobacco usage or history of. ROS: 23:21 Constitutional: Negative for fever, chills, and weight loss, Eyes: Negative for injury, mh7 pain, redness, and discharge, ENT: Negative for injury, pain, and discharge, Neck: Negative for injury, pain, and swelling, Respiratory: Negative for shortness of breath, cough, wheezing, and pleuritic chest pain, : Negative for injury, bleeding, discharge, and swelling, MS/Extremity: Negative for injury and deformity, Skin: Negative for injury, rash, and discoloration, Neuro: Negative for headache, weakness, numbness, tingling, and seizure, Psych: Negative for depression, anxiety, suicide ideation, homicidal ideation, and hallucinations, Allergy/Immunology: Negative for hives, rash, and allergies, Endocrine: Negative for neck swelling, polydipsia, polyuria, polyphagia, and marked weight changes, Hematologic/Lymphatic: Negative for swollen nodes, abnormal bleeding, and unusual bruising. Exam: 23:21 Constitutional: This is a well developed, well nourished patient who is awake, alert, mh7 and in no acute distress. Head/Face: Normocephalic, atraumatic. Eyes: Pupils equal round and reactive to light, extra-ocular motions intact. Lids and lashes normal. Conjunctiva and sclera are non-icteric and not injected. Cornea within normal limits. Periorbital areas with no swelling, redness, or edema. Neck: Trachea midline, no thyromegaly or masses palpated, and no cervical lymphadenopathy. Supple, full range of motion without nuchal rigidity, or vertebral point tenderness. No Meningismus. Chest/axilla: Normal chest wall appearance and motion. Nontender with no deformity. No lesions are appreciated. Cardiovascular: Regular rate and rhythm with a normal S1 and S2. No gallops, murmurs, or rubs. Normal PMI, no JVD. No pulse deficits. Respiratory: Lungs have equal breath sounds bilaterally, clear to auscultation and percussion. No rales, rhonchi or wheezes noted. No increased work of breathing, no retractions or nasal flaring. Abdomen/GI: Soft, non-tender, with normal bowel sounds. No distension or tympany. No guarding or rebound. No evidence of tenderness throughout. Back: No spinal tenderness. No costovertebral tenderness. Full range of motion. Skin: Warm, dry with normal turgor. Normal color with no rashes, no lesions, and no evidence of cellulitis. MS/ Extremity: Pulses equal, no cyanosis. Neurovascular intact. Full, normal range of motion. Neuro: Awake and alert, GCS 15, oriented to person, place, time, and situation. Cranial nerves II-XII grossly intact. Motor strength 5/5 in all extremities. Sensory grossly intact. Cerebellar exam normal. Normal gait. Psych: Awake, alert, with orientation to person, place and time. Behavior, mood, and affect are within normal limits. Vital Signs: 15:38 BP 181 / 94; Pulse 102; Resp 18; Temp 97.4; Pulse Ox 98% on R/A; Weight 90.72 kg; ll1 Height 5 ft. 6 in. (167.64 cm); Pain 6/10; 22:45 BP 181 / 98; Pulse 90; Resp 18; Pulse Ox 98% on R/A; mg2 23:45 BP 138 / 64; Pulse 75; Resp 18; Pulse Ox 98% on R/A; mg2 08/08 02:00 BP 142 / 65; Pulse 71; Resp 18; Pulse Ox 98% on R/A; wh 08/07 15:38 Body Mass Index 32.28 (90.72 kg, 167.64 cm) ll1 MDM: 00:15 Differential diagnosis: abnormal EKG, acute myocardial infarction, acute pericarditis, mh7 anxiety, coronary artery disease chest wall pain, congestive heart failure costochondritis, esophagitis, gastritis, gastroesophageal reflux disease (GERD), myocarditis, pericarditis, pneumonia. HEART Score: History: Moderately Suspicious (1), ECG: Non specific repolarization disturbance / LBTB / PM (1), Age: > 45 and < 65 years (1), Risk Factors: > or = 3 Risk factors for atherosclerotic disease (2), [Hypercholesterolemia] [Hypertension] [DM] Troponin: > or = 3 x Normal Limit (2), Total Score = 7. The patient was given aspirin in the Emergency Department. Data reviewed: vital signs, nurses notes, lab test result(s), cardiac enzymes, CBC, electrolytes, EKG, radiologic studies, plain films. Data interpreted: Pulse oximetry: on room air is 98 %. Interpretation: normal. Counseling: I had a detailed discussion with the patient and/or guardian regarding: the historical points, exam findings, and any diagnostic results supporting the discharge/admit diagnosis, the presence of at least one elevated blood pressure reading (>120/80) during this emergency department visit, lab results, radiology results, the need for further work-up and treatment in the hospital. Response to treatment: the patient's symptoms have markedly improved after treatment. 00:18 Patient medically screened. [facility] 08/07 22:46 Order name: Basic Metabolic Panel [facility] 08/07 22:46 Order name: CBC with Diff; Complete Time: 23:20 [facility] 08/07 22:46 Order name: LFT's; Complete Time: 00:02 [facility] 08/07 22:46 Order name: Magnesium; Complete Time: 00:02 [facility] 08/07 22:46 Order name: NT PRO-BNP; Complete Time: 00:02 [facility] 08/07 22:46 Order name: PT-INR; Complete Time: 23:20 [facility] 08/07 22:46 Order name: Troponin (emerg Dept Use Only); Complete Time: 00:02 [facility] 08/07 22:47 Order name: Basic Metabolic Panel; Complete Time: 00:02 [facility] 08/07 23:14 Order name: Lipase [facility] 08/07 23:16 Order name: Lipase; Complete Time: 00:02 [facility] 08/08 02:06 Order name: SARS-COV-2 RT PCR; Complete Time: 03:57 [facility] 08/08 06:06 Order name: CBC with Automated Diff [facility] 08/07 22:46 Order name: XRAY Chest (1 view) [facility] [place] 08/08 06:32 Order name: Comprehensive Metabolic Panel [facility] 08/08 06:32 Order name: Phosphorus [facility] 08/08 06:32 Order name: Lipid Profile [facility] 08/08 06:32 Order name: T4 Free [facility] 08/08 06:32 Order name: Magnesium [facility] 08/08 06:32 Order name: Thyroid Stimulating Hormone [facility] 08/08 06:44 Order name: Hemoglobin A1c [facility] 08/08 07:10 Order name: Troponin I [facility] 08/08 07:59 Order name: Glucose, Ancillary Testing [facility] 08/08 08:33 Order name: RAD [facility] 08/08 09:22 Order name: Urine Dipstick-Ancillary [facility] 08/08 12:17 Order name: Glucose, Ancillary Testing [facility] 08/08 12:48 Order name: Urinalysis [facility] 08/07 15:43 Order name: EKG; Complete Time: 15:44 ll1 08/07 15:43 Order name: EKG - Nurse/Tech; Complete Time: 15:43 [facility] 08/07 22:46 Order name: EKG; Complete Time: 22:47 [facility] 08/07 22:46 Order name: Cardiac monitoring; Complete Time: 23:03 mg2 08/07 22:46 Order name: IV Saline Lock; Complete Time: 23:03 mg2 08/07 22:46 Order name: Labs collected and sent; Complete Time: 23:02 mg2 08/07 22:46 Order name: O2 Per Protocol; Complete Time: 23:02 mg2 08/07 22:46 Order name: O2 Sat Monitoring; Complete Time: 23:03 mg2 Administered Medications: 08/07 23:22 Drug: GI Cocktail without - (Maalox Suspension 30 ml, Lidocaine Liquid 2 % 15 mg2 ml) Route: PO; 08/08 02:04 Follow up: Response: No adverse reaction 08/07 23:23 Drug: Pepcid (famotidine) 20 mg Route: IVP; Site: left antecubital; [facility] [place] 08/08 02:04 Follow up: Response: No adverse reaction 00:01 Drug: Aspirin Chewable Tablet 324 mg Route: PO; [facility] 02:04 Follow up: Response: No adverse reaction 00:19 Drug: Lovenox (enoxaparin) 1 mg/kg Route: Sub-Q; Site: right lower abdomen; 02:04 Follow up: Response: No adverse reaction Disposition: 08/08/20 00:18 Hospitalization ordered by Pantera Sharma for Inpatient Admission. Preliminary diagnosis is Non-ST elevation (NSTEMI) myocardial infarction. - Bed requested for [facility] ER HOLD. - Status is Inpatient Admission. aa5 - Condition is Stable. - Problem is new. - Symptoms have improved. Signatures: Dispatcher [employer] [facility] Tameka Jenkins RN RN Brittany Elizondo RN RN aa5 Gatito Butterfield, SPECIAL PROCEDURES TECHNOLOGIST-C SPECIAL PROCEDURES TECHNOLOGIST-Cla1 Eze Correa RN RN Tay Singh RN RN [facility] Elvin Black RN RN ll1 Arsen Wilkerson MD MD 7 Corrections: (The following items were deleted from the chart) 08/07 23:15 23:14 Lipase ordered. [facility] 08/08 00:26 08/07 23:47 CORONAVIRUS+MR.LAB.BRZ ordered. [facility] 08/08 00:33 00:18 Hospitalization Ordered by Pantera Sharma DO for Inpatient Admission. Preliminary mw diagnosis is Non-ST elevation (NSTEMI) myocardial infarction. Bed requested for Telemetry/MedSurg (Inpatient). Status is Inpatient Admission. Condition is Stable. Problem is new. Symptoms have improved. mh7 13:44 00:33 08/08/2020 00:18 Hospitalization Ordered by Pantera Sharma DO for Inpatient aa5 Admission. Preliminary diagnosis is Non-ST elevation (NSTEMI) myocardial infarction. Bed requested for [facility] ER HOLD. Status is Inpatient Admission. Condition is Stable. Problem is new. Symptoms have improved. mw
[2020-08-08] MEDS ORDERED: ENOXAPARIN 100 MG/ML SYR SQ ONE (00:35)
[2020-08-08] MEDS ORDERED: MORPHINE 2 MG/ML SYR IV PRN (02:21)
[2020-08-08] MEDS ORDERED: NITROGLYCERIN 0.4 MG/TAB SL PRN (02:21)
[2020-08-08] MEDS ORDERED: ONDANSETRON 4 MG/2 ML VIAL IV PRN (02:21)
[2020-08-08] MEDS ORDERED: ACETAMINOPHEN 500 MG TAB PO PRN (02:21)
[2020-08-08 02:29] VITALS: BMI 32.3
--- NOTE | 2020-08-08 03:44 | P.HP ---
Certification for Inpatient Patient admitted to: Inpatient With expected LOS: >2 Midnights Patient will require the following post-hospital care: None Practitioner: I am a practitioner with admitting privileges, knowledge of patient current condition, hospital course, and medical plan of care. Services: Services provided to patient in accordance with Admission requirements found in Title 42 Section 412.3 of the Code of Federal Regulations Patient History Date of Service: 08/08/20 Reason for admission: chest pain History of Present Illness: Ms. Zabala is a 54 yo female with HTN, DM, and HLD here today for 10/10 sternal chest pain that has been occurring for the last month with exertion. The pain is constant but varies in severity. Initially she just thought her OTC acid pills weren't working, but after she was started on pantoprazole after having an EGD and colonoscopy, her symptoms were still present. She started to have more severe pain especially with exertion like walking on the track or chasing after her grandchild. Along with the pain, she would have elevations in her BP, lightheadedness, diaphoresis, and tachycardia. Denies nausea, vomiting, SOB. Pain improves with sitting down. Today the pain started around 3pm when she was watering her garden. She has a family history of DM and CAD. Trop 19.5. Glu 128. AST 143. Allergies No Known Allergies Allergy (Verified 08/16/17 08:54) Home Medications: Amlodipine Besylate 1 tab PO DAILY 08/16/17 Pantoprazole Sodium 40 mg PO DAILY 08/16/17 lisinopriL [Prinivil*] 10 mg PO DAILY 08/16/17 Codeine/APAP [Tylenol W/Codeine #3 tab] 1 tab PO Q4HP PRN #30 tab 08/17/17 Sulfamethoxazole/Trimethoprim [Bactrim Ds Tablet] 1 each PO BID #10 tablet 08/17/17 - Past Medical/Surgical History Has patient received pneumonia vaccine in the past: No Diabetic: Yes -: htn -: gerd -: hld -: hiatal hernia -: dm -: h/o nephrolithiasis -: c sections x 3 -: cholecystectomy Psychosocial/ Personal History: takes care of her grandchild - Family History Mother -: Heart disease, Diabetes Father -: Diabetes, Stroke, Cancer Notes: prostate cancer Brother -: Heart disease, Diabetes - Social History Smoking Status: Never smoker Alcohol use: Yes CD- Drugs: No Caffeine use: Yes Place of Residence: Home Review of Systems General: Sweats, As per HPI Eyes: Unremarkable ENT: Unremarkable Respiratory: Unremarkable Cardiovascular: Chest Pain, Palpitations, Light Headedness, As per HPI Gastrointestinal: Unremarkable Genitourinary: Unremarkable Musculoskeletal: Unremarkable Integumentary: Unremarkable Neurological: Unremarkable Lymphatics: Unremarkable Physical Examination - Vital Signs Temperature: 98.2 F Blood Pressure: 135/61 Pulse: 84 Respirations: 74 Pulse Ox (%): 97 - Physical Exam General: Alert, In no apparent distress, Oriented x3, Cooperative HEENT: Atraumatic, Normocephalic, PERRLA, Mucous membr. moist/pink, EOMI, Sclerae nonicteric Neck: Supple, 2+ carotid pulse no bruit, JVD not distended, No Thyromegaly, No LAD Respiratory: Clear to auscultation bilaterally, Normal air movement Cardiovascular: No edema, Normal pulses, Regular rate/rhythm, Normal S1 S2, No gallops, No rubs, No murmurs Capillary refill: <2 Seconds Gastrointestinal: Normal bowel sounds, Soft and benign, Non-distended, No ascites, No tenderness, No masses, No rebound, No guarding Musculoskeletal: No clubbing, No swelling, No contractures, No erythema, No tenderness, No warmth Integumentary: No rashes, No breakdown, No significant lesion, No tenderness/swelling, No erythema, No warmth, No cyanosis Neurological: Normal gait, Normal speech, Normal strength at 5/5 x4 extr, Normal tone, Sensation intact, Cranial nerves 3-12 intact, Normal affect Lymphatics: No axilla or inguinal lymphadenopathy - Studies Laboratory Data (last 24 hrs) 08/07/20 23:14: Lipase Cancelled 08/07/20 22:50: PT 11.8, INR 1.03 08/07/20 22:50: WBC 9.40, Hgb 14.5, Hct 44.9, Plt Count 318 08/07/20 22:50: Sodium 138, Potassium 4.2, BUN 10, Creatinine 0.48 L, Glucose 128 H, Magnesium 2.2, Total Bilirubin 0.3, AST 143 H, ALT 59, Alkaline Phosphat ase 92, Lipase 121 Assessment and Plan - Plan Assessment NSTEMI HTN DM HLD Plan Cardiology consulted ASA 324mg and full dose Lovenox given in ED 1 mg/kg Lovenox q12h, daily ASA, metoprolol, statin trend troponins and EKG, morphine and NTG PRN lipid panel, TSH/T4, A1c pending dietitian consulted BP currently stable, will continue to monitor sliding scale insulin and accuchecks Discharge Plan: Home Plan to discharge in: 48 Hours - Advance Directives Does patient have a Living Will: No Does patient have a Durable POA for Healthcare: No - Code Status/Comfort Care Code Status Assessed: Yes (full code) Critical Care: No Time Spent Managing Pts Care (In Minutes): 70
[2020-08-08] MEDS ORDERED: METOPROLOL TAR 50 MG TAB ONE ×2 (05:16→09:07)
[2020-08-08] MEDS: METOPROLOL TAR 50 MG TAB PO SCH ×3 (05:40→20:38)
[2020-08-08 05:59] LABS: Basophils % 0.5 % (0-1.3); Hematocrit 41.3 % (36.0-45.0); Lymphocytes % 35.9 % (15.3-44.8); MPV 8.7 fL (7.6-11.3)
[2020-08-08 06:25] LABS: ALT/SGPT 56 U/L (12-78); AST/SGOT 137 U/L (15-37); Albumin 3.6 g/dL (3.4-5.0); Alkaline Phosphatase 89 U/L (45-117); BUN Blood Urea Nitrogen 8 mg/dL (7-18); Bicarbonate 23 mmol/L (21-32); Bilirubin Total 0.4 mg/dL (0.2-1.0); Glucose Level 121 mg/dL (74-106); HDL Cholesterol 37 mg/dL (40-60); LDL Cholesterol, Calculated 209 (<130); Magnesium 2.2 mg/dL (1.8-2.4); Phosphorus 3.2 mg/dL (2.5-4.9); Potassium 3.9 mmol/L (3.5-5.1); Protein, Total 7.2 g/dL (6.4-8.2); Sodium Level 139 mmol/L (136-145)
[2020-08-08] MEDS: INSULIN -REGULAR HUMAN 50 UNIT/0.5 ML ML SQ SCH ×3 (07:30→16:30)
--- NOTE | 2020-08-08 08:32 | RAD REPORT ---
EXAM DESCRIPTION: RAD - Chest Single View - 08/08/2020 1:05 am CLINICAL HISTORY: CHEST PAIN Chest pain. COMPARISON: No comparisons FINDINGS: Portable technique limits examination quality. The lungs are grossly clear. The heart is normal in size. No displaced fractures. IMPRESSION: No acute intrathoracic process suspected.
[2020-08-08] MEDS ORDERED: lisinopriL 10 MG TAB PO SCH (09:00)
[2020-08-08] MEDS ORDERED: AMLODIPINE 5 MG TAB PO SCH (09:00)
[2020-08-08] MEDS ORDERED: ASPIRIN EC 81 MG TAB PO SCH (09:00)
[2020-08-08] MEDS ORDERED: AMLODIPINE 5 MG TAB ONE (09:07)
[2020-08-08] MEDS ORDERED: ASPIRIN EC 81 MG TAB PO ONE (09:07)
[2020-08-08] MEDS ORDERED: lisinopriL 10 MG TAB ONE (09:07)
[2020-08-08 09:21] LABS: Urine Blood Trace-intact (Negative); Urine Glucose Negative (Negative); Urine Protein Trace (Negative); Urine Specific Gravity 1.025 (1.005-1.030)
[2020-08-08] MEDS ORDERED: PNEUMOCOCCAL VACCINE 0.5 ML IMVAC ONE (10:00)
--- NOTE | 2020-08-08 10:47 | EKG ---
Test Date: 2020-08-07 Test Time: 23:56:36 Laundry Clerk: MG MEASUREMENT RESULTS: Intervals: Rate: 80 LA: 154 QRSD: 74 QT: 388 QTc: 447 [place]: P: 43 LA: 154 QRS: 1 T: 145 INTERPRETIVE STATEMENTS: Normal sinus rhythm Anterolateral infarct, age undetermined Abnormal ECG Compared to ECG 08/07/2020 15:43:40 No significant changes Electronically Signed On 08-08-20 10:46:31 CDT by Igor Cr
--- NOTE | 2020-08-08 10:48 | EKG ---
Test Date: 2020-08-07 Test Time: 15:43:40 Rough And Trueing Machine Operator: CELESTE MEASUREMENT RESULTS: Intervals: Rate: 92 KS: 146 QRSD: 64 QT: 330 QTc: 408 [place]: P: 48 KS: 146 QRS: 13 T: 60 INTERPRETIVE STATEMENTS: Normal sinus rhythm Anterior infarct, age undetermined Abnormal ECG Compared to ECG 08/16/2017 05:01:19 Myocardial infarct finding now present Electronically Signed On 08-08-20 10:46:43 CDT by Igor Cr
[2020-08-08] MEDS ORDERED: HEPARIN 10,000 UNIT/10 ML VIAL IV ONE ×2 (10:51→13:05)
[2020-08-08] MEDS ORDERED: VERAPAMIL HCL 10 MG/4 ML VIAL IV ONE ×2 (10:51→13:04)
[2020-08-08] MEDS ORDERED: HEPARIN 5000 UNIT/ML 1 ML VIAL ONE ×2 (10:51→13:04)
[2020-08-08] MEDS ORDERED: ATROPINE SULF 1 MG/10 ML SYR IV ONE ×2 (10:51→13:05)
[2020-08-08] MEDS ORDERED: HEPA 1000U/500MLS 2,000 UNIT/1,000 ML BAG IV ONE (11:17)
[2020-08-08 12:35] LABS: Urine Appearance CLEAR (Clear); Urine Bilirubin NEGATIVE (Negataive); Urine Blood NEGATIVE (Negative); Urine Color YELLOW (Yellow); Urine Glucose NEGATIVE (Negative); Urine Protein NEGATIVE (Negative); Urine Specific Gravity 1.015 (1.005-1.030); Urine Urobilinogen 0.2 mg/dL (0.2-1.0)
[2020-08-08 12:47] LABS: Urine Microscopic Reflex NO UMIC
[2020-08-08] MEDS ORDERED: NA CHLORIDE 0.9% 1,000 ML ONE (12:51)
[2020-08-08] MEDS ORDERED: FENTANYL CITR 100 MCG/2 ML ONE (13:04)
[2020-08-08] MEDS ORDERED: MIDAZOLAM HCL 2 MG/2 ML INJ ONE (13:04)
--- NOTE | 2020-08-08 13:07 | CON ---
Date of Consultation: 08/08/2020 Reason For Consultation: Non-ST elevation myocardial infarction. History Of Present Illness: Ms. Zabala is a 54-year-old woman. Has a history of hypertension, ruben betes, dyslipidemia, gastroesophageal reflux disease, and obesity, came in with mid-epigastric pain t hat has been going on intermittently for 2 months. Has had a colonoscopy and endoscopy revealing gas troesophageal reflux disease, gastritis. Has taken proton pump inhibitors, but her symptoms did come back with and without exertion. Came in today with ST changes on the EKG consistent with ischemia a nd her troponin went up to 19 consistent with non-ST elevation myocardial infarction. She is pain-fr ee now. Has received metoprolol, aspirin, and Lovenox. Past Medical History: As stated above. Allergies: NONE. Review of Systems: Negative. Social History: Negative. Family History: Positive for heart disease. Medications: At home include lisinopril, Norvasc, Protonix, metformin. She is also on statin Physical Examination: Vital Signs: Stable, afebrile. HEENT: Negative. Neck: Supple with no bruit. Chest: Clear to auscultation and percussion. Cardiac: Revealed a regular rate and rhythm. No murmurs, gallops, or rubs. Abdomen: Benign. Extremities: Revealed no clubbing, cyanosis, or edema. Diagnostic Data: Shows that her troponin is 19. EKG showing inferolateral ischemia. Cholesterol is 323, triglycerides 381, LDL of 209. Impression And Plan: 1.Non-ST elevation myocardial infarction. Received Lovenox. She is on aspirin and beta-blockers. The patient needs a heart catheterization today. The case was discussed with her in detail. She und erstands the risks and benefits of the procedure and she agrees to proceed. 2.Dyslipidemia, severe, poorly controlled. She may need down the road, but for now we wi ll put her on statin as well as Tricor. 3.Diabetes, well controlled. 4.Hypertension, well controlled. 5.Gastroesophageal reflux disease. We will see what the catheterization shows prior to making furth er decisions. The case was discussed with Dr. Sharma. MIGUEL/IAIN Voice ID: [id number] Report ID: [id number]
[2020-08-08 15:35] VITALS: O2SAT 97
--- NOTE | 2020-08-08 16:04 | OP ---
Date of Procedure: 08/08/2020 Surgeon: ELVER TREJO Procedure Performed: Selective coronary angiogram. Access: Right radial artery 6-South African closed with TR band. Indication: Non-ST elevation myocardial infarction. Description Of Procedure: After risks, benefits, and alternatives were explained, the patient agreed to proceed and signed informed consent. The patient was brought into the cardiac catheterization la boratory, prepped and draped in usual sterile fashion. Then, we accessed right radial artery using p Whisper micropuncture kit, placed 6-South African Slender sheath, and took a 5-South African Royal 4.0 catheter in to aortic root, engaged left main and right coronary artery, took standard views and then removed the catheter and the sheath, and placed TR band. Findings: 1.Left main; distal at least 50% to 60% stenosis, 3 vessels, branches of the left main, the LAD, arlin us intermedius and left circumflex. 2.LAD has a proximal 95% to 90% stenosis with OMAYRA-3 flow in the vessel. This is the culprit for an RI. The rest of the LAD is healthy. 3.Ramus intermedius; large vessel with proximal 50% stenosis. 4.Left circumflex; small. The OM branch is large with 80% stenosis in the proximal portion. 5.RCA; mid 40% stenosis. Conclusions: Severe distal left main proximal LAD and OM1 stenosis. Recommend CABG. SR/MODL Voice ID: [id number] Report ID: [id number]
--- NOTE | 2020-08-08 16:32 | P.PN ---
Subjective Date of Service: 08/08/20 Primary Care Provider: Micky Jenkins NP Chief Complaint: chest pain Subjective: Improving Physical Examination - Vital Signs Temperature: 97.1 F Blood Pressure: 116/88 Pulse: 68 Respirations: 17 Pulse Ox (%): 98 - Studies Laboratory Data (last 24 hrs) 08/07/20 23:14: Lipase Cancelled 08/07/20 22:50: PT 11.8, INR 1.03 08/07/20 22:50: WBC 9.40, Hgb 14.5, Hct 44.9, Plt Count 318 08/07/20 22:50: Sodium 138, Potassium 4.2, BUN 10, Creatinine 0.48 L, Glucose 128 H, Magnesium 2.2, Total Bilirubin 0.3, AST 143 H, ALT 59, Alkaline Phosphatase 92, Lipase 121 Assessment & Plan Discharge Plan: Transfer Plan to discharge in: 24 Hours Physician Review Additional Text: Physical exam: Patient alert, cooperative. Heart: Regular rate and rhythm Lungs: Clear to auscultation Abdomen: Soft nontender nondistended Extremities: Good range of motion Impression: Chest pain secondary to NSTEMI with heart catheterization showing severe distal left main proximal LAD and OM1 stenosis: 1. Left main; distal at least 50% to 60% stenosis, 3 vessels, branches of the left main, the LAD, ramus intermedius and left circumflex. 2. LAD has a proximal 95% to 90% stenosis with OMAYRA-3 flow in the vessel. This is the culprit for an MD. The rest of the LAD is healthy. 3. Ramus intermedius; large vessel with proximal 50% stenosis. 4. Left circumflex; small. The OM branch is large with 80% stenosis in the proximal portion. 5. RCA; mid 40% stenosis. Hypertension Prediabetes Hyperlipidemia Plan: Patient had heart catheterization showing severe distal left main proximal LAD and OM1 stenosis. Cardiology recommending CABG. Initiation for transfer for CABG will be addressed. Continue to monitor patient closely. Continue current medications: Aspirin 81 mg daily, heparin drip, Norvasc 5 mg daily, lisinopril 10 mg daily, metoprolol 50 mg 1 pill twice daily, and Crestor 40 mg daily. Awaiting acceptance for transfer. We will monitor the patient closely. Time Spent Managing Pts Care (In Minutes): 55
[2020-08-08] MEDS ORDERED: HEPA 1000U/500MLS 1,000 UNIT/500 ML BAG IV ONE (16:37)
[2020-08-08] MEDS ORDERED: HEPARIN/D5W 25,000 UNIT/500 ML BAG IV PRN (17:00)
[2020-08-08 17:25] LABS: Protime INR 1.08
[2020-08-08 20:51] VITALS: BP 132/61
[2020-08-08 20:54] VITALS: TEMP 98.5
[2020-08-08] MEDS ORDERED: ROSUVASTATIN 10 MG TAB PO SCH (21:00)
--- NOTE | 2020-08-09 17:50 | P.DS ---
Admission Date: 08/08/20 Discharge Date: 08/08/20 Primary Care Provider: Micky Jenkins NP Disposition: TRANSFER TO [facility] Discharge Condition: FAIR Reason for Admission: chest pain Consultations: Cardiology-Dr. Jorgensen Procedures: COVID: Negative Medical Problem List: Chest pain secondary to NSTEMI with heart catheterization showing severe distal left main proximal LAD and OM1 stenosis: 1. Left main; distal at least 50% to 60% stenosis, 3 vessels, branches of the left main, the LAD, ramus intermedius and left circumflex. 2. LAD has a proximal 95% to 90% stenosis with OMAYRA-3 flow in the vessel. This is the culprit for an FL. The rest of the LAD is healthy. 3. Ramus intermedius; large vessel with proximal 50% stenosis. 4. Left circumflex; small. The OM branch is large with 80% stenosis in the proximal portion. 5. RCA; mid 40% stenosis. Hypertension Prediabetes Hyperlipidemia Brief History of Present Illness: Patient presented with chest pain. She was admitted for further evaluation. Hospital Course: Patient had heart catheterization showing severe distal left main proximal LAD and OM1 stenosis. Cardiology recommending CABG. Initiation for transfer for CABG was addressed. Continue to monitor patient closely. Continue current medications: Aspirin 81 mg daily, heparin drip, Norvasc 5 mg daily, lisinopril 10 mg daily, metoprolol 50 mg 1 pill twice daily, and Crestor 40 mg daily. Patient was accepted for transfer. Vital Signs/Physical Exam: Temp Pulse Resp BP Pulse Ox 98.5 F 77 16 132/61 93 08/08/20 20:00 08/08/20 20:38 08/08/20 20:00 08/08/20 20:38 08/08/20 20:00 General: Other (Please see earlier progress note for details on exam.) Laboratory Data at Discharge: WBC 8.40 K/uL (4.3-10.9) 08/08/20 05:30 Hgb 13.5 g/dL (12.0-15.0) 08/08/20 05:30 Hct 41.3 % (36.0-45.0) 08/08/20 05:30 Plt Count 314 K/uL (152-406) 08/08/20 05:30 PT 12.4 SECONDS (9.5-12.5) 08/08/20 17:08 INR 1.08 08/08/20 17:08 APTT 33.7 SECONDS (24.3-36.9) 08/08/20 17:08 Sodium 139 mmol/L (136-145) 08/08/20 05:30 Potassium 3.9 mmol/L (3.5-5.1) 08/08/20 05:30 BUN 8 mg/dL (7-18) 08/08/20 05:30 Creatinine 0.42 mg/dL (0.55-1.3) L 08/08/20 05:30 Glucose 121 mg/dL (74-106) H 08/08/20 05:30 Phosphorus 3.2 mg/dL (2.5-4.9) 08/08/20 05:30 Magnesium 2.2 mg/dL (1.8-2.4) 08/08/20 05:30 Total Bilirubin 0.4 mg/dL (0.2-1.0) 08/08/20 05:30 AST 137 U/L (15-37) H 08/08/20 05:30 ALT 56 U/L (12-78) 08/08/20 05:30 Alkaline Phosphatase 89 U/L (45-117) 08/08/20 05:30 Troponin I 20.50 ng/mL (0.0-0.045) H* 08/08/20 15:06 Triglycerides 381 mg/dL (<150) H 08/08/20 05:30 Cholesterol 322 mg/dL (<200) H 08/08/20 05:30 HDL Cholesterol 37 mg/dL (40-60) L 08/08/20 05:30 Cholesterol/HDL Ratio 8.70 08/08/20 05:30 Lipase Cancelled 08/07/20 23:14 Home Medications: Amlodipine Besylate 1 tab PO DAILY 08/16/17 Pantoprazole Sodium 40 mg PO DAILY 08/16/17 lisinopriL [Prinivil*] 10 mg PO DAILY 08/16/17 Codeine/APAP [Tylenol W/Codeine #3 tab] 1 tab PO Q4HP PRN #30 tab 08/17/17 Sulfamethoxazole/Trimethoprim [Bactrim Ds Tablet] 1 each PO BID #10 tablet 08/17/17 Physician Discharge Instructions: Patient transferred for CABG. Followup: Bouchra Jenkins NP [Primary Care Provider] - Time spent managing pt's care (in minutes): 55
== END 2020-08-08 21:30 | disposition short-term general hospital (02) | DRG 282 ==
LOC: ER 15:09 → UNDOADMIN 08-08 00:54 → ERHOLD 08-08 00:54 → 2ND 08-08 17:45
PROVIDERS: ADMIT Family Medicine; ATTEND Family Medicine
PROC: 4A023N7 Measurement of Cardiac Sampling and Pressure, Left Heart, Percutaneous Approach (ICD-10-PCS; principal; 2020-08-08)
PROC: B2111ZZ Fluoroscopy of Multiple Coronary Arteries using Low Osmolar Contrast (ICD-10-PCS; 2020-08-08)
DX: I21.4 Non-ST elevation (NSTEMI) myocardial infarction (principal); I10 Essential (primary) hypertension; E78.5 Hyperlipidemia, unspecified; R73.03 Prediabetes; K21.9 Gastro-esophageal reflux disease without esophagitis; Z79.899 Other long term (current) drug therapy; Z90.49 Acquired absence of other specified parts of digestive tract; Z20.822 Contact with and (suspected) exposure to COVID-19
CPT/HCPCS: 36415; 71045; 80048; 80053; 80061; 80076; 81003; 82947; 83036; 83690; 83735; 83880; 84100; 84439; 84443; 84484; 85025; 85610; 85730; 93005; 93454; 94760; 96372; 96374; 99285; C1893; J1644; J1650; J2250; J3010; J7030; U0003